=== PATIENT | female | born 1955 | race African-American/Black ===

== ENCOUNTER 2020-02-03 08:15 | Inpatient (IN) | payer MEDICARE, MEDICAID ==
[~2020-02-03] VITALS: Ht 172.7 cm; Wt 135.2 kg
[2020-02-03 08:20] VITALS: BP 152/102
--- NOTE | 2020-02-03 08:29 | ER.PDOC ---
General Chief Complaint: Requesting Medical Care Stated Complaint: TOE ON RT FOOT INFECTED TRAVEL OUT OF US: No Time seen by MD: 08:20 Source: patient Exam Limitations: no limitations History of Present Illness Initial Comments patient has area of infection r toe for two weeks, now area is spreading up foot on right and up lower right lower extremity. no fever or chills. Timing/Duration: other Severity: moderate Modifying Factors: improves with movement Allergies: Coded Allergies: No Known Allergies (Unverified , 02/03/20) Review of Systems Constitutional: denies chills, denies fever Respiratory: denies cough Cardiovascular: denies chest pain Gastrointestinal: denies abdominal pain Genitourinary: denies pain Musculoskeletal: denies neck pain Skin: denies rash Psychiatric/Neurological: denies headache Hematologic/Lymphatic: denies blood clots Immunological/Allergic: denies food allergy Physical Exam General Appearance: No Apparent Distress, WD/WN EENT: eyes nml inspection, nml ENT inspection Neck: Non-Tender Respiratory: chest non-tender, lungs clear CVS: reg rate & rhythm, no murmur Gastrointestinal: Non Tender Back: Normal Inspection Extremities: Other Neurologic/Psychiatric: site director II-XII NML as Tested, No Motor/Sensory Deficits, Alert Skin: Other Comments erythema and increased warmth of the r foot, there is an area of skin breakdown on the right 2nd toe with swelling and erythema no crepitus, the redness and swelling and warmth extends to the distal rle. no fluctuance or crepitus. Results/Orders Results/Orders Orders - LULY DA SILVA MD Saline Lock (02/03/20 08:35) Lactic Acid(Ml) (02/03/20 08:35) Blood Culture (02/03/20 08:35) Cbc With Auto Diff (02/03/20 08:35) Comprehensive Metabolic Panel (02/03/20 08:35) Urinalysis (02/03/20 08:35) Xr Foot Rt (02/03/20 08:35) 0.9 % Sodium Chloride (Ns 1000ml) (02/03/20 09:00) Vancomycin Hcl (Vancomycin Hcl) (02/03/20 09:00) Piperacillin Sodium/Tazobactam (Zosyn 4. (02/03/20 09:00) Accucheck (02/03/20 08:38) 0.9 % Sodium Chloride (Ns 250ml) (02/03/20 09:04) Vancomycin Hcl (Vancomycin Hcl) (02/03/20 09:04) 0.9 % Sodium Chloride (Ns 100ml) (02/03/20 09:05) Urine Culture (02/03/20 09:30) Vital Signs Date Time Temp Pulse Resp B/P (MAP) Pulse Ox O2 Delivery O2 Flow Rate FiO2 02/03/20 08:20 98.4 82 16 02/03/20 08:20 98.4 82 16 97 02/03/20 08:20 98.4 82 16 152/102 (119) 97 Room Air Administered Medications Medications (Trade) Dose Ordered Sig/Huyen Route PRN Reason Start Time Stop Time Status Last Admin Dose Admin Sodium Chloride 3,000 ml @ 1,500 mls/hr OT IV 02/03/20 09:00 03/04/20 08:59 UNV 02/03/20 09:17 1,500 MLS/HR Vancomycin HCl 1 gm/Sodium Chloride 250 ml @ 175 mls/hr OT ONCE IV 02/03/20 09:00 02/03/20 10:25 UNV 02/03/20 09:56 175 MLS/HR Laboratory Tests Test 02/03/20 09:15 02/03/20 09:30 White Blood Count 5.3 10^3/uL (4.5-11.0) Red Blood Count 4.73 10^6/uL (4.00-5.20) Hemoglobin 13.3 g/dL (12.0-15.0) Hematocrit 42.2 % (36.0-46.0) Mean Corpuscular Volume 89.2 fL (78-100) Mean Corpuscular Hemoglobin 28.1 pg (26-34) Mean Corpuscular Hemoglobin Concent 31.5 g/dL (33-36.5) L Red Cell Distribution Width 14.9 % (11.5-14.5) H Platelet Count 175 10^3/uL (150-400) Mean Platelet Volume 10.7 fL (7.8-11.0) Neutrophils (%) (Auto) 56.0 % (41.0-85.0) Lymphocytes (%) (Auto) 29.4 % (24.0-44.0) Monocytes (%) (Auto) 10.3 % (5.0-12.0) Neutrophils # (Auto) 3.0 10^3/uL (1.8-7.7) Lymphocytes # (Auto) 1.57 10^3/uL1 (1.0-4.8) Monocytes # (Auto) 0.6 10^3/uL (0.3-0.8) Absolute Immature Granulocyte (auto 0.01 10^3 u/L (0-2) Absolute Eosinophils (auto) 0.2 10^3/uL (0.0-0.2) Immature Granulocytes % 0.20 % (0.00-0.50) Eosinophils % 3.4 % (0.0-5.0) Basophils % 0.7 % (0.0-0.2) H Basophils # 0.0 10^3/uL (0.0-0.1) Sodium Level 138 mmol/L (132-145) Potassium Level 3.7 mmol/L (3.6-5.2) Chloride Level 103.0 mmol/L (96-109) Carbon Dioxide Level 25.9 mmol/L (20.0-32) Anion Gap 12.8 Blood Urea Nitrogen 12 mg/dL (7-18) Creatinine 0.95 mg/dL (0.59-1.40) Estimated GFR () 72.1 (>/=60) Est GFR (CKD-EPI)(Non-Afr Andorran) 59.6 (>/=60) BUN/Creatinine Ratio 12.0 Glucose Level 183 mg/dL (70-110) H Lactic Acid Level 1.1 mmol/L (0.5-1.9) Calcium Level 9.8 mg/dL (8.4-10.5) Total Bilirubin 0.6 mg/dL (0.2-1.0) Aspartate Amino Transferase (AST) 12 U/L (0-35) Alanine Aminotransferase (ALT) 29 U/L (12-78) Alkaline Phosphatase 85 U/L (50-136) Total Protein 8.0 g/dL (6.4-8.2) Albumin 3.6 g/dL (3.4-5.0) Globulin 4.4 Albumin/Globulin Ratio 0.818 Urine Collection Type VOID Urine Color YELLOW (YELLOW) Urine Appearance CLEAR (CLEAR) Urine Bilirubin NEGATIVE MG/DL (NEGATIVE) Urine Ketones NEGATIVE (NEGATIVE) Urine Specific H[place]gins 1.025 (1.005-1.035) Urine pH 5.5 (5.0-6.0) Urine Protein NEGATIVE (NEGATIVE) Urine Urobilinogen NORMAL (NEGATIVE) Urine Nitrate NEGATIVE (NEGATIVE) Urine Leukocyte Esterase 25 /uL TRACE (NEGATIVE) Urine Blood NEGATIVE (NEGATIVE) Urine RBC 0-2 RBC/HPF (NONE SEEN) Urine WBC 5-10 WBC/HPF (0-2) H Urine Squamous Epithelial Cells FEW #/HPF (FEW) Urine Bacteria FEW (NONE SEEN) H Urine Glucose NORMAL (NEGATIVE) Progress Progress called dr lawrence for admission no an ER DEPART Departure Time of Disposition: 09:30 Disposition: 09 ADMITTED INPATIENT Impression: Primary Impression: Cellulitis Condition: Stable Referrals: CATIA ROBLES (PCP) PRIMARY CARE PROVIDER Duration or Time Spent with Pa: LULY JARQUIN MD Feb 03, 2020 08:29
[2020-02-03] MEDS ORDERED: VANCOMYCIN HCL 1 GM in NS 250ML 250 ML IV ONE (09:00)
[2020-02-03] MEDS ORDERED: ZOSYN 4.5 GM 4.5 GM in NS 100ML 100 ML IV SCH (09:00)
[2020-02-03] MEDS ORDERED: NS 1000ML 3,000 ML IV SCH (09:00)
[2020-02-03] MEDS ORDERED: VANCOMYCIN HCL 1 GM ONE (09:04)
[2020-02-03] MEDS ORDERED: NS 250ML 250 ML IV ONE (09:04)
[2020-02-03] MEDS ORDERED: NS 100ML 100 ML IV ONE (09:05)
[2020-02-03 09:15] VITALS: BP 159/70
[2020-02-03 09:26] LABS: BASOPHIL % 0.7 % (0.0-0.2); EOSINOPHIL # 0.2 10^3/uL (0.0-0.2); EOSINOPHIL % 3.4 % (0.0-5.0); LYMPHOCYTES # 1.57 10^3/uL1 (1.0-4.8); LYMPHOCYTES % 29.4 % (24.0-44.0); MEAN CORP HGB 28.1 pg (26-34); MONOCYTES # 0.6 10^3/uL (0.3-0.8); MONOCYTES % 10.3 % (5.0-12.0); PLATELET COUNT 175 10^3/uL (150-400); RED CELL DISTRIBUTION WIDTH 14.9 % (11.5-14.5)
--- NOTE | 2020-02-03 09:29 | DIREP ---
PROCEDURE:XRAY FOOT MIN 3 VWS-RT COMPARISON:None. INDICATIONS:cellulitis r foot. FINDINGS: BONES:No fracture is demonstrated. A large plantar calcaneal spur is noted. JOINTS:Degenerative changes are seen in the midfoot. SOFT TISSUES:Diffuse soft tissue swelling is seen of the foot. OTHER:No additional findings. CONCLUSION:There is diffuse soft tissue swelling of the foot. No fracture or acute bony abnormality is seen. Dictated by: Dave Roland M.D. on 02/03/2020 at 09:27 AM
[2020-02-03 09:38] LABS: CALCIUM 9.8 mg/dL (8.4-10.5); CARBON DIOXIDE 25.9 mmol/L (20.0-32)
--- NOTE | 2020-02-03 09:45 | NUR ---
DR. CLARK MURPHYRESS ON THE PHONE WITH DR. RODAS ABOUT POTENTIAL ADMIT. DR. RODAS WANTS TO COME TO ER TO VISIT WITH PATIENT BEFORE ADMISSION.
[2020-02-03 09:53] LABS: APPEARANCE,URINE CLEAR (CLEAR); BILIRUBIN,URINE NEGATIVE (NEGATIVE); UA COLOR YELLOW (YELLOW); UROBILINOGEN,URINE NORMAL (NEGATIVE)
[2020-02-03 10:22] VITALS: BP 148/81
[2020-02-03 11:04] VITALS: BP 122/66
--- NOTE | 2020-02-03 11:10 | PCM.HP ---
History of Present Illness Reason for Visit: (1) Cellulitis ICD Code: L03.90 - Cellulitis, unspecified SNOMED: 412111523 (2) Diabetes ICD Code: E11.9 - Type 2 diabetes mellitus without complications SNOMED: 22043119 (3) Diabetic foot ulcer ICD Code: E11.621 - Type 2 diabetes mellitus with foot ulcer; L97.509 - Non- pressure chronic ulcer of other part of unspecified foot with unspecified severity SNOMED: 91275297, 718763017 Hx of Present Illness 64-year-old female with past medical history of diabetes, morbid obesity and diabetic foot ulcer who presents with increased redness and pain in her right lower leg that appears to be secondary to a diabetic foot wound that has been worsening for the last 2 weeks. X-ray shows bone loss on toe but unclear if this is chronic bone loss versus acute osteomyelitis patient has area of infection r toe for two weeks, now area is spreading up foot on right and up lower right lower extremity. no fever or chills. Travel History [place] RISK:Travel to/contact w: No Review of Systems Allergies: Coded Allergies: No Known Allergies (Unverified , 02/03/20) VTE VTE Risk Score VTE Risk: Score 0-1 = Low Risk (Aggressive mobilization; early ambulation; no VTE prophylaxis required) Score 2: Moderate Risk (Intermittent/Pneumatic Compression Device OR Lovenox/Heparin/Coumadin) Score 3-4: High Risk (Intermittent/Pneumatic Compression Device AND Lovenox/Heparin/Coumadin) Score > or =5: Highest Risk (Intermittent/Pneumatic Compression Device AND Lovenox/Heparin/Coumadin) Exam Vital Signs Vital Signs Date Time Temp Pulse Resp B/P (MAP) Pulse Ox O2 Delivery O2 Flow Rate FiO2 02/03/20 11:04 98.5 55 16 99 Room Air 02/03/20 10:22 148/81 (103) General Appearance: Alert, Oriented X3, Cooperative HEENT: Atraumatic, PERRLA, Mucous membr. moist/pink Respiratory: Clear to auscultation, Normal air movement Cardiovascular: Regular rate, Normal S1, No murmurs Abdominal: Normal bowel sounds Extremities: No clubbing, No cyanosis, Other (erythema and increased warmth of the r foot, there is an area of skin breakdown on the right 2nd toe with swelling and erythema no crepitus, the redness and swelling and warmth extends to the distal rle. no fluctuance or crepitus.) Skin: Other (Cellulitic changes right lower leg diffusely with likely source diabetic foot wound) Neuro: Normal gait, Normal speech, Strength at 5/5 X4 ext Psych/Mental Status: Mental status NL Assessment/Plan Assessment/Plan Assessment/Plan Assessment: 64-year-old female with past medical history of diabetes, morbid obesity and diabetic foot ulcer who presents with increased redness and pain in her right lower leg that appears to be secondary to a diabetic foot wound that has been worsening for the last 2 weeks. X-ray shows bone loss but unclear if this is chronic bone loss versus acute osteomyelitis Plan: Cellulitis: We will treat with vancomycin and Zosyn pending further work-up and evaluation. Right lower extremity changes appear to be consistent with cellulitis given diabetic foot ulcer but will obtain d-dimer and possibly right lower extremity Doppler ultrasound if d-dimer is elevated to rule out DVT Diabetic foot ulcer: Wound care nurse consult ordered Diabetes mellitus: Sliding scale insulin obtain A1c in the morning diabetic education inpatient and referral to medical billing clerk for foot care long-term Morbid obesity: Encourage weight loss DVT prophylaxis SCDs and enoxaparin Full code Problems: (1) Cellulitis Status: Acute ICD Code: L03.90 - Cellulitis, unspecified SNOMED: 449908299 (2) Diabetes ICD Code: E11.9 - Type 2 diabetes mellitus without complications SNOMED: 18115263 (3) Diabetic foot ulcer ICD Code: E11.621 - Type 2 diabetes mellitus with foot ulcer; L97.509 - Non- pressure chronic ulcer of other part of unspecified foot with unspecified kateryna rity SNOMED: 71749673, [id number] YASIR RODAS MD Feb 03, 2020 11:10
--- NOTE | 2020-02-03 11:12 | NUR ---
TRANSFER/REPORT PATIENT TRANSFERRED TO M/S UNIT VIA STRETCHER. NO S/S OF DISTRESS NOTED, VITALS STABLE. REPORT GIVEN TO ARGELIA HOLDER, VERBALIZED UNDERSTANDING AND DENIES FURTHER QUESTIONS.
[2020-02-03] MEDS: LOVENOX SQ SCH (11:30)
[2020-02-03] MEDS: HUMULIN R SQ SCH ×3 (11:30→21:00)
[2020-02-03] MEDS: ZOSYN 3.375 GM 3.375 GM in NS 100ML 100 ML IV SCH ×2 (14:30→23:33)
[2020-02-03 17:43] VITALS: BP 148/81
[2020-02-03] MEDS: VANCOMYCIN HCL 2 GM in NS 500ML 500 ML IV SCH (19:47)
[2020-02-03] MEDS ORDERED: TYLENOL #4 PO PRN (20:00)
[2020-02-03] MEDS ORDERED: ZOFRAN IV PRN (20:00)
[2020-02-03] MEDS ORDERED: TYLENOL PO PRN (20:00)
[2020-02-03 21:29] VITALS: BP 122/62
[2020-02-03] MEDS ORDERED: BENADRYL IM STA (22:51)
[2020-02-03] MEDS ORDERED: BENADRYL IV ONE (23:00)
--- NOTE | 2020-02-03 23:07 | NUR ---
DR. RODAS NOTIFIED PT ITCHING . BENADRYL 50MG IV GIVEN PER DR. RODAS ORDER.
--- NOTE | 2020-02-03 23:17 | DIREP ---
PROCEDURE:MRI - RIGHT CALF WITH AND WITHOUT CONTRAST COMPARISON:[facility], CR, XRAY FOOT MIN 3 VWS-RT, 02/03/2020, 08:51 AM. INDICATIONS:Evaluate for Osteomyelitis of toe TECHNIQUE:Multiplanar multi sequence MRI of the right forefoot was performed before and after the administration of IV contrast. FINDINGS:Bones maintain normal T1 signal. No signal abnormalities or abnormal enhancement are seen to suggest osteomyelitis. No acute fracture. There is soft tissue swelling of the toes most prominent about the distal 2nd toe with soft tissue defect dorsally. No evidence of abscess. Visualized tendons and ligaments appear intact. CONCLUSION: Soft tissue swelling of the toes most prominent about the distal 2nd toe with soft tissue defect dorsally. No evidence of osteomyelitis or abscess. Dictated by: Deonte Yanes MD. On 02/03/2020 at 11:03 PM
[2020-02-04] VITALS (7 sets, daily range): BP systolic 105–134; BP diastolic 52–76
[2020-02-04] MEDS: ZOSYN 3.375 GM 3.375 GM in NS 100ML 100 ML IV SCH ×4 (04:52→21:51)
[2020-02-04 05:28] LABS: BASOPHIL % 0.4 % (0.0-0.2); EOSINOPHIL # 0.3 10^3/uL (0.0-0.2); EOSINOPHIL % 5.4 % (0.0-5.0); LYMPHOCYTES # 1.74 10^3/uL1 (1.0-4.8); LYMPHOCYTES % 34.7 % (24.0-44.0); MEAN CORP HGB 28.5 pg (26-34); MONOCYTES # 0.6 10^3/uL (0.3-0.8); MONOCYTES % 12.4 % (5.0-12.0); NEUTROPHIL # 2.4 10^3/uL (1.8-7.7); NEUTROPHILS % 47.1 % (41.0-85.0); PLATELET COUNT 173 10^3/uL (150-400); RED CELL DISTRIBUTION WIDTH 14.6 % (11.5-14.5)
[2020-02-04] MEDS: MOTRIN PO PRN ×2 (05:30→19:55)
[2020-02-04 06:12] LABS: CALCIUM 8.2 mg/dL (8.4-10.5); CARBON DIOXIDE 27.2 mmol/L (20.0-32)
[2020-02-04] MEDS: VANCOMYCIN HCL 2 GM in NS 500ML 500 ML IV SCH ×2 (07:15→19:01)
[2020-02-04] MEDS: HUMULIN R SQ SCH ×4 (07:30→21:00)
[2020-02-04] MEDS: LOVENOX SQ SCH (08:17)
[2020-02-04] MEDS ORDERED: POTASSIUM CHLORIDE PO ONE (09:30)
--- NOTE | 2020-02-04 12:30 | NUR ---
DISCHARGE PLAN CASE MANAGEMENT SPOKE WITH PATIENT AT BEDSIDE CONCERNING DISCHARGE PLAN AND NEEDS. LIVES AT HOME ALONE. INDEPENDENT OF ADLS. DENIES NEED FOR DME OR FOR HOME OXYGEN. CME EDUCATED PT ON SNF, SBU, HH, AND OUTPATIENT SERVICE. DENIES NEED FOR SERVICES AT THIS TIME. REFUSAL LETTER PRESENTED, SIGNED, AND PLACED ON CHART. CURRENT PCP IS CATIA ROBLES BUT PT WOULD LIKE TO GET A NEW PT PACKET FOR DR. BOWEN. CM OBTAINED A NEW PT PACKET AND BROGHT TO PT'S BEDSIDE. DISCHARGE PLAN IS TO DISCHARGE HOME AND CONTINUE SELF CARE. CM LEFT CONTACT INFORMATION AT BEDSIDE AND WILL CONTINUE TO FOLLOW FOR DISCHARGE NEEDS.
--- NOTE | 2020-02-04 15:07 | DIREP ---
PROCEDURE:US VENOUS IMAGING BILAT COMPARISON:None. INDICATIONS:Elevated D-dimer R/O DVT TECHNIQUE:The lower extremities were evaluated utilizing gauthier scale images with segmental compression, color Doppler, and spectral Doppler with respiratory variation and augmentation. FINDINGS: RIGHT Common femoral vein:Patent Superficial femoral vein:Patent Popliteal vein:Patent Posterior tibial vein:Patent Peroneal vein:Patent Saphenofemoral junction:Patent Waveforms: Within normal limits. LEFT Common femoral vein:Patent Superficial femoral vein:Patent Popliteal vein:Patent Posterior tibial vein:Patent Peroneal vein:Patent Saphenofemoral junction:Patent Waveforms: Within normal limits. Left Stafford cyst measuring 5.2 x 1.4 x 2.6 cm with internal echoes in calcifications which may suggest chronic or previous internal hemorrhage. CONCLUSION: No DVT identified in the right or left lower extremity. Dictated by: Ashanti Guzman MD on 02/04/2020 at 03:03 PM
--- NOTE | 2020-02-04 17:27 | PRM.PN ---
PROGRESS NOTE S/O/A/P DATE: 02/04/20 TIME: 1:10pm SUBJECTIVE: Says the RLE pain, swelling, and redness has improved. Happy that she can wiggle her toes today. OBJECTIVE: PHYSICAL EXAMINATION: VITAL SIGNS: T 98.3, HR 56, RR 18, BP 120/76, O2 sat 100% RA GENERAL: Resting comfortably in NAD. No family or friends present at bedside. HEENT: NC/AT. PERRLA. EOMI. MMM. Neck is supple. LUNGS: CTAB. No wheezing, rales, or rhonchi. No sign of respiratory distress or cyanosis. HEART: Normal S1S2. +1/6 systolic murmur LSB. ABDOMEN: Soft. ND. NTTP. No rebound or guarding. Normal BS throughout. Obese. EXTREMITIES: RLE swollen to the knee, warm, and erythematous. Right 2nd toe with skin breakdown and small ulcer. NEUROLOGIC: AAOx3. Sensation intact. Gait was not assessed at this time. LABORATORY DATA: Reviewed and significant for Hgb 11.5, D-dimer 0.56, K 3.5, Gluc 157, HgbA1c 8.3 IMAGING STUDIES: No new studies today ASSESSMENT / PLAN: 1) RLE and Foot Cellulitis: Continue Vanc and Zosyn. 2) Right DM Foot Ulcer: Continue Abx and Wound Care. 3) UTI (POA): Continue Zosyn. Await culture results. 4) DM-2: Stable on Insulin per Correction Scale. 5) Morbid Obesity s/p Gastric Bypass: Pt has been counseled and encouraged to lead a healthier lifestyle. 6) DVT prophylaxis: Continue Lovenox. JIGAR EMERSON MD Feb 04, 2020 17:27
[2020-02-04] MEDS ORDERED: NS 500ML 500 ML IV ONE (18:56)
[2020-02-04] MEDS: TYLENOL #3 PO PRN (20:53)
[2020-02-05 03:37] VITALS: BP 112/68
[2020-02-05] MEDS: ZOSYN 3.375 GM 3.375 GM in NS 100ML 100 ML IV SCH ×4 (03:47→21:39)
--- NOTE | 2020-02-05 06:51 | NUR ---
DR. EMERSON NOTIFIED PT VANCO. TROUGH 699 VANCO TO BE HELD.
[2020-02-05] MEDS: VANCOMYCIN HCL 2 GM in NS 500ML 500 ML IV SCH (07:00)
[2020-02-05] MEDS: HUMULIN R SQ SCH ×4 (07:04→20:40)
[2020-02-05 08:20] VITALS: BP 105/57
[2020-02-05] MEDS ORDERED: MELO15TA24 PO (09:54)
[2020-02-05] MEDS ORDERED: LEVO75TA6 PO (09:54)
[2020-02-05] MEDS ORDERED: AMLO-170 PO (09:54)
[2020-02-05] MEDS ORDERED: HYDR25TA9 PO (09:54)
[2020-02-05] MEDS ORDERED: ALLO300T PO (09:54)
[2020-02-05] MEDS ORDERED: DULA0.75 SQ (09:54)
[2020-02-05] MEDS ORDERED: TOPI25TA8 PO (09:54)
[2020-02-05 12:33] VITALS: BP 122/79
[2020-02-05] MEDS: LOVENOX SQ SCH (13:00)
--- NOTE | 2020-02-05 13:11 | NUR ---
Wound Care: Patient states she lives in [place] and would be unable to drive to outpt wound care services. Patient's r 2nd great toe is dry and calloused. No drainage. Patient given instructions to clean feet daily, apply moisturizing cream daily and ensure she wears footwear while walker. Patient states she will follow up with oil refinery operator after discharge.
[2020-02-05] MEDS ORDERED: TOPAMAX PO SCH (14:00)
[2020-02-05 16:56] VITALS: BP 139/99
[2020-02-05] MEDS: VANCOMYCIN HCL 1.25 GM in NS 250ML 250 ML IV SCH (17:00)
--- NOTE | 2020-02-05 17:00 | NUR ---
IV Pt IV infiltrated while zosyn was infusing, this nurse stopped IV and discontinued IV. Lea Aviles attempted to obtain IV access x2 unsuccessfully. Pt refused any more iv attempts. This nurse advised Pt that iv antibiotics would be needed, and that midlines and PICC lines were available but Pt refused any more iv access. This nurse notified Dr. Gordon at this time. no new orders received at this time
[2020-02-05 19:53] VITALS: BP 160/82
[2020-02-05] MEDS: MOTRIN PO PRN (20:09)
[2020-02-05] MEDS ORDERED: NS 500ML 500 ML IV ONE (21:34)
[2020-02-06 00:13] VITALS: BP 103/78
[2020-02-06] MEDS: ZOSYN 3.375 GM 3.375 GM in NS 100ML 100 ML IV SCH ×4 (03:31→21:09)
[2020-02-06 04:31] VITALS: BP 144/62
[2020-02-06] MEDS: VANCOMYCIN HCL 1.25 GM in NS 250ML 250 ML IV SCH ×2 (04:54→17:22)
[2020-02-06] MEDS: MOTRIN PO PRN (05:06)
[2020-02-06] MEDS: TYLENOL #3 PO PRN ×3 (05:12→19:43)
[2020-02-06] MEDS: SYNTHROID PO SCH (06:10)
[2020-02-06] MEDS: HUMULIN R SQ SCH ×4 (07:30→21:53)
[2020-02-06] MEDS: TOPAMAX PO SCH (09:14)
[2020-02-06] MEDS: ZYLOPRIM PO SCH (09:15)
[2020-02-06] MEDS: NORVASC PO SCH (09:15)
[2020-02-06] MEDS: HYDROCHLOROTHIAZIDE PO SCH (09:15)
[2020-02-06 09:54] LABS: BASOPHIL % 0.9 % (0.0-0.2); EOSINOPHIL # 0.4 10^3/uL (0.0-0.2); EOSINOPHIL % 8.2 % (0.0-5.0); LYMPHOCYTES # 1.53 10^3/uL1 (1.0-4.8); LYMPHOCYTES % 35.7 % (24.0-44.0); MEAN CORP HGB 28.1 pg (26-34); MONOCYTES # 0.3 10^3/uL (0.3-0.8); MONOCYTES % 6.8 % (5.0-12.0); NEUTROPHIL # 2.1 10^3/uL (1.8-7.7); NEUTROPHILS % 48.4 % (41.0-85.0); PLATELET COUNT 203 10^3/uL (150-400); RED CELL DISTRIBUTION WIDTH 14.7 % (11.5-14.5)
[2020-02-06 10:13] LABS: CALCIUM 9.3 mg/dL (8.4-10.5); CARBON DIOXIDE 26.2 mmol/L (20.0-32)
[2020-02-06 11:12] VITALS: BP 124/69
[2020-02-06] MEDS: LOVENOX SQ SCH (12:13)
[2020-02-06 16:45] VITALS: BP 102/67
[2020-02-06 19:35] VITALS: BP 154/63
--- NOTE | 2020-02-06 20:36 | PRM.PN ---
PROGRESS NOTE S/O/A/P DATE: 02/06/20 TIME: SUBJECTIVE: Says the RLE pain, swelling, and redness has improved. Happy that she can wiggle her toes today. OBJECTIVE: PHYSICAL EXAMINATION: VITAL SIGNS: T 98.3, HR 56, RR 18, BP 120/76, O2 sat 100% RA GENERAL: Resting comfortably in NAD. No family or friends present at bedside. HEENT: NC/AT. PERRLA. EOMI. MMM. Neck is supple. LUNGS: CTAB. No wheezing, rales, or rhonchi. No sign of respiratory distress or cyanosis. HEART: Normal S1S2. +1/6 systolic murmur LSB. ABDOMEN: Soft. ND. NTTP. No rebound or guarding. Normal BS throughout. Obese. EXTREMITIES: RLE swollen to the knee, warm, and erythematous. Right 2nd toe with skin breakdown and small ulcer. NEUROLOGIC: AAOx3. Sensation intact. Gait was not assessed at this time. LABORATORY DATA: Reviewed and significant for Hgb 11.5, D-dimer 0.56, K 3.5, Gluc 157, HgbA1c 8.3 IMAGING STUDIES: No new studies today ASSESSMENT / PLAN: 1) RLE and Foot Cellulitis: Continue Vanc and Zosyn. 2) Right DM Foot Ulcer: Continue Abx and Wound Care. 3) UTI (POA): Continue Zosyn. Await culture results. 4) DM-2: Stable on Insulin per Correction Scale. 5) Morbid Obesity s/p Gastric Bypass: Pt has been counseled and encouraged to lead a healthier lifestyle. 6) DVT prophylaxis: Continue Lovenox. JIGAR EMERSON MD Feb 06, 2020 20:36
[2020-02-06 23:05] VITALS: BP 107/47
[2020-02-07] MEDS: ZOSYN 3.375 GM 3.375 GM in NS 100ML 100 ML IV SCH ×2 (02:35→08:30)
[2020-02-07 03:20] VITALS: BP 119/43
[2020-02-07] MEDS: VANCOMYCIN HCL 1.25 GM in NS 250ML 250 ML IV SCH (05:22)
[2020-02-07] MEDS: SYNTHROID PO SCH (05:35)
[2020-02-07] MEDS: HUMULIN R SQ SCH ×2 (07:30→11:30)
[2020-02-07 08:00] VITALS: BP 128/52
[2020-02-07] MEDS: ZYLOPRIM PO SCH (09:18)
[2020-02-07] MEDS: HYDROCHLOROTHIAZIDE PO SCH (09:18)
[2020-02-07] MEDS: NORVASC PO SCH (09:18)
[2020-02-07] MEDS: TOPAMAX PO SCH (09:18)
[2020-02-07] MEDS: LOVENOX SQ SCH (11:30)
[2020-02-07 12:00] VITALS: BP 119/66
[2020-02-07] MEDS ORDERED: AMOX1TAB63 PO (12:48)
[2020-02-07] MEDS ORDERED: CLIN300C8 PO (12:48)
[2020-02-07] MEDS ORDERED: NEURONTIN ONE (14:24)
--- NOTE | 2020-02-10 00:03 | PRM.DC ---
DISCHARGE SUMMARY Y DATE OF ADMISSION: 02/03/20 DATE OF DISCHARGE: 02/07/20 FINAL DISCHARGE DIAGNOSES: CONSULTS: None HISTORY & BRIEF HOSPITAL COURSE: PHYSICAL EXAMINATION: VITAL SIGNS: T 98.5, HR 89, RR 16, BP 141/92, O2 sat 97% on RA GENERAL: Resting comfortably in NAD. No family or friends present at bedside. HEENT: NC/AT. PERRLA. EOMI. MMM. Neck is supple. LUNGS: CTAB. No wheezing, rales, or rhonchi. HEART: Normal S1S2. No murmurs, rubs, gallops, or thrills. ABDOMEN: Soft. ND. NTTP. No rebound or guarding. Normal BS throughout. EXTREMITIES: No pitting edema. Moving all 4 extremities equally and completely off the bed. SKIN: No obvious rashes or open cuts. NEUROLOGIC: AAOx3. Sensation intact. Gait was not assessed at this time. DISCHARGE CONDITION: Stable DISPOSITION: D/C'd home MEDICATIONS: See Med Rec INSTRUCTION TO PT: 1) Diet: Regular as tolerated 2) Activity: As tolerated FOLLOW UP: 1) PCP in 1 week JIGAR EMERSON MD Feb 10, 2020 00:03
== END 2020-02-07 14:44 | disposition home or self-care (01) | DRG 638 ==
LOC: ER 08:15 → MS 10:14
PROVIDERS: ADMIT Family Medicine; ATTEND Family Medicine
DX: E11.621 Type 2 diabetes mellitus with foot ulcer (principal); L03.115 Cellulitis of right lower limb; N39.0 Urinary tract infection, site not specified; Z68.42 Body mass index [BMI] 45.0-49.9, adult; L97.509 Non-pressure chronic ulcer of other part of unspecified foot with unspecified severity; E66.01 Morbid (severe) obesity due to excess calories; Z98.84 Bariatric surgery status
CPT/HCPCS: 36415; 73720; 80053; 80202; 81000; 82948; 83036; 83605; 83735; 84100; 84145; 85025; 85379; 85610; 85730; 87040; 87070; 87077; 87086; 87186; 93970; 99285; A9579; G0378; J1200; J1650; J2543; J3370; J3490; J7040; J7050; 73630-RT